=== PATIENT | male | born 1970 | race Caucasian/White ===

== ENCOUNTER → 2023-03-17 | Emergency (ER) | payer OTHER, BC ==
[~2023-03-17] VITALS: Ht 180.3 cm; Wt 94.5 kg
[~2023-03-17] MED LIST: FOLI-43 PO; RIVA15TA PO; THI100T PO
[2023-03-17 01:26] VITALS: BP 142/93; PULSE 102; RESP 16; TEMP 98; O2SAT 97
== END | disposition home or self-care (01) ==
LOC: ER 02:52
DX: R60.0 Localized edema (principal)
CPT/HCPCS: 99283